=== PATIENT | male | born 1965 | race Caucasian/White ===

== ENCOUNTER 2016-10-07 20:17 | Emergency (ER) | payer MEDICAID ==
[~2016-10-07] VITALS: Ht 182.9 cm; Wt 89.0 kg
[2016-10-07 22:20] VITALS: BP 137/96
== END 2016-10-07 23:03 | disposition home or self-care (01) ==
LOC: ER 20:49
DX: R10.13 Epigastric pain (principal); K21.9 Gastro-esophageal reflux disease without esophagitis; I10 Essential (primary) hypertension
CPT/HCPCS: 99283